=== PATIENT | female | born 1975 | race Hispanic/Latino ===

== ENCOUNTER 2016-12-25 18:28 | Emergency (ER) ==
[2016-12-25] MEDS ORDERED: CLINDAMYCIN IM ONE (20:16)
[2016-12-25] MEDS ORDERED: MARCAINE 0.5% INJ ONE (20:17)
[2016-12-25] MEDS ORDERED: XYLOCAINE-MPF 1% INJ ONE (20:17)
--- NOTE | 2016-12-25 20:19 | PROVIDER DOCUMENTATION ---
HPI-EENT General - General Chief Complaint: Toothache Stated Complaint: FACIAL PAIN Time Seen by Provider: 12/25/16 20:05 Source: patient Allergies/Adverse Reactions: Patient Allergies Allergy/AdvReac Type Severity Reaction Status Date / Time No Known Allergies Allergy Verified 12/25/16 18:38 Home Medications: Home Medication List Medication Instructions Recorded Confirmed Last Taken Type Amoxicillin 500 mg PO BID #20 tablet 12/25/16 Unknown Rx Ketorolac [Toradol] 10 mg PO Q8H PRN PRN #14 tablet 12/25/16 Unknown Rx - History of Present Illness-EENT General Nature of Presenting Problem: 40 yof c/o toothache for 2 days. Pain continues to get worse. Pt developed facial swelling today that continues to get worse also. EENT Location: reports: mouth, facial, dental Quality of Pain: reports: aching, throbbing Severity: reports: severe Onset/Duration: reports: 2 days ago Timing: reports: still present, getting worse. denies: improving, gone now, resolved prior to arrival, intermittent, constant, changing over time, other Prearrival Treatment: Initiated no prearrival treatment, Not Used over the counter meds, Not Used prescription meds, Not Used squeezing nostrils, Not Used nasal packing, Not Used flushing eyes, Not Used other Associated Symptoms: reports: facial pain/swelling, tooth pain. denies: denies symptoms, change in hearing, cough, drooling, DZ, ear drainage, fever, BENJAMIN, malaise, MS, nasal congestion/drainage, [employer], poor fluid intake, poor solids intake, sinus infection, sore throat, SW, voice change, other Other injuries?: denies: neck, head, back, other Locality of Occurance: Home Similar Symptoms Previously?: No - Eyes Eye Problem Symptoms: denies: eye pain, decrease vision, blurred vision, double vision, curtain, other, burning, itching, sensitivity to light, redness, matting , orbital swelling, eyelid swelling, foreign body sensation - Ears Ear Problem Symptoms: reports: none - Throat/Dental Throat/Dental Problem Symptoms: reports: toothache, swelling of jaw/face Throat/Dental Problem Context: reports: dental decay, fractured tooth Recently seen a dentist or have an appointment?: No Review of Systems - Adult - REVIEW OF SYSTEMS - ADULT Constitutional: reports: see HPI. denies: no symptoms reported, chills, fever, fatique, night sweats, weight gain, weight loss, other Eyes: reports: no symptoms reported. denies: see HPI, discharge, dry eyes, decreased vision, blurred vision, double vision, eye pain, redness, other Ears, Nose, Mouth & Throat: reports: see HPI, mouth/dental pain, mouth swelling . denies: no symptoms reported, ear discharge, ear pain, hearing loss, tinnitus , epistaxis, sinus problem, nose pain, loose teeth, hoarseness, throat pain, throat swelling, other Respiratory: reports: no symptoms reported. denies: see HPI, chronic cough, cough, dyspnea on exertion, excessive sputum production, hemoptysis, pleurisy, shortness of breath, wheezing, other Gastrointestinal: reports: no symptoms reported. denies: see HPI, abdominal pain, hematemesis, constipation, diarrhea, difficulty swallowing, frequent heartburn, nausea, poor appetite, rectal bleeding, vomiting, other Genitourinary: reports: no symptoms reported. denies: see HPI, dysuria, discharge, frequency, flank pain, frequent UTI's, hematuria, hesitency, incontinence, urinary retention, urgency, other Musculoskeletal: reports: no symptoms reported Integumentary: reports: no symptoms reported. denies: see HPI, hives, hair loss , itching, mole changes, nail changes, rash, skin sores/ulcer, skin thickening, other Neurological: reports: no symptoms reported. denies: see HPI, ataxia, dizziness /vertigo, headache/migraines, loss of balance, numbness, paresthesia, seizure, slurred speech, syncope, tremors, other All Other Systems: Reviewed and Negative Past History - Adult - PAST MEDICAL HISTORY-ADULT Review of Records: reports: Old Records Reviewed, Nursing Assessment Review, Medications Reviewed, Social history reviewed & non-contributory. Physical Exam- EENT - Physical Exam EENT Initial Vital Signs Reviewed: Yes General Appearance: appears well, alert, no apparent distress. negative: mild distress, moderate distress, severe distress, cachetic, obese, thin, anxious, lethargic, slow to respond, obtunded, combative, other Eye Exam: bilateral eye: normal inspection, PERRL, EOMI Ear Exam: bilateral ear: auricle normal, canal normal, TM normal Nasal Exam: normal inspection. negative: active bleeding, discharge, dried blood, foreign body, sinus tenderness, other Throat Exam: pharynx normal, dental tenderness, mandibular swelling Neck: non-tender, full range of motion, supple, normal inspection. negative: Brudzinski's sign, carotid bruit, C-spine tenderness, limited range of motion, lymphadenopathy, meningismus, trachial deviation, tender lateral, tender midline , thyromegaly, other Respiratory: chest non-tender, lungs clear, normal breath sounds, no pleuratic chest pain, no respiratory distress, no accessory muscle use. negative: respiratory distress, decreased breath sounds, accessory muscle use, crackles, rales, rhonchi, stridor, wheezing, dull on percussion, prolonged expiration, pain on inspiration, plerual rub, retractions, splinting, decreased rate, increased rate, crepitus, other Cardiovascular: normal peripheral pulses, regular rate, rhythm, no edema, no gallop, no JVD, no murmur Abdominal Exam: normal bowel sounds, non tender, soft, no organomegaly, no pulsatile mass. negative: abdominal bruit, abnormal bowel sounds, distended, guarding, rigid, rebound, tenderness, hernia, mass, hepatomegaly, spleenomegaly , McBurney's point tenderness, Winn's sign, obturator sign, prominent aortic pulsations, psoas, Rovsing's sign, other Lymphatic: no adenopathy. negative: axilla node tender, cervical node tenderness, inguinal node tender, enlargement, striations, streaking, other Back Exam: normal inspection, no CVA tenderness, no vertebral tenderness. negative: CVA tenderness, decreased range of motion, ecchymosis, kyphosis, lordosis, muscle spasm, scoliosis, swelling, vertebral tenderness, other Extremity: normal range of motion, non-tender, normal gait, normal inspection, no pedal edema, no calf tenderness, normal capillary refill. negative: pelvis stable, abnormal NV exam, calf tenderness, deformity, erythema, inflammation, joint effusion, pulse deficit, pedal edema, slow capillary refill, swelling, tenderness, other Integumentary: normal color, normal turgor, warm/dry. negative: abrasion(s), blanching, cyanosis, diaphoresis, decubitus, dependent lividity, ecchymosis, embolic lesions, erythema, signs of IVDA, jaundice, laceration(s), mottled, pallor, petechiae, purpura, rash, swelling, tenderness, warm, zoster-like rash, other Neurologic: grossly normal Psych/Mental Status: oriented x 3 Progress - PLAN OF CARE/RESULTS Progress/Plan/Lab Results: Orders Category Date Time Status Bupivacaine 0.5% [Marcaine 0.5%] Med 12/25/16 20:17 Discontinued 50 ml INJ NOW ONE Bupivacaine Pf 0.5% [Marcaine 0.5% Pf] Med 12/25/16 20:32 Discontinued 10 ml .ROUTE .STK-MED ONE Clindamycin Med 12/25/16 20:16 Discontinued 600 mg IM NOW ONE Lidocaine 1% Pf [Xylocaine-Mpf 1%] Med 12/25/16 20:17 Discontinued 5 ml INJ NOW ONE Vital Signs Temp Pulse Resp BP Pulse Ox 12/25/16 21:15 98.2 F 84 18 164/89 99 12/25/16 18:36 98.2 F 81 18 180/94 100 No Known Allergies Allergy (Verified 12/25/16 18:38) Amoxicillin 500 mg PO BID #20 tablet 12/25/16 Ketorolac [Toradol] 10 mg PO Q8H PRN PRN #14 tablet 12/25/16 Procedures - ENT PROCEDURES Nerve Block: Dental Anesthetic: 0.5%, 1%, Lidocaine/Xylocaine, Bupivicaine/Marcaine Volume of Anesthetic (ml's): 7 Procedure Comment: Pt tolerated well. All pain gone. Departure - Departure Time of Disposition Order: 20:17 DIAGNOSIS: Dental abscess Disposition: HOME 01 Certified Medical Emergency: Emergent Condition: Stable Additional Instructions: Follow up with dentist as soon as possible. ED Follow Up Instructions: You have been treated by a care provider in the Emergency Department. These instructions are being provided to you so you can have an understanding of how to care for yourself upon discharge. Upon discharge from the Emergency Department, you are responsible for making arrangements for follow-up care by a physician of your choice. Take all prescribed medications as directed. Return to the Emergency Department immediately for any new or worsening symptoms. You may call the Physician Referral phone number at [phone] to obtain a list of Physicians who are taking new patients. Prescriptions: Amoxicillin 500 mg PO BID #20 tablet Ketorolac [Toradol] 10 mg PO Q8H PRN PRN #14 tablet PRN Reason: Pain Referrals: Osmar Montero MD [STAFF PHYSICIAN] - None,PCP [Primary Care Provider] - Forms: Return to School/Parent Work Instructions: Amoxicillin capsules or tablets, Dental Abscess, Ketorolac tablets Attestation - Physician/ KATIANA Attestation Patient care was provided by Advanced Practice Provider:: Yes Advanced Practice Provider:: Calvin Hernandez Advanced Practice Provider documentation review:: The Mid-level provider documentation, treatment plan and medical decision making was reviewed by the physician who agrees with all treatment and medical decision making by the MLP. Physician Attestation - Physician Attestation I, the provider, attest to the following statement:: Calvin Hernandez Physician documentation Attestation:: This documentation recorded by the scribe accurately reflects the service I personally performed and the decisions made by me.
[2016-12-25] MEDS ORDERED: MARCAINE 0.5% PF ONE (20:32)
[2016-12-25 21:16] VITALS: BP 164/89
== END 2016-12-25 21:16 | disposition home or self-care (01) ==
LOC: P.ED 18:28
DX: K04.7 Periapical abscess without sinus (principal); K02.9 Dental caries, unspecified; S02.5XXA Fracture of tooth (traumatic), initial encounter for closed fracture; K08.89 Other specified disorders of teeth and supporting structures; R51 Headache; R22.0 Localized swelling, mass and lump, head
CPT/HCPCS: 96372; S0020; S0077